=== PATIENT | male | born 1970 ===

== ENCOUNTER 2024-08-18 22:36 | Emergency (ER) | payer SELFPAY ==
[2024-08-18] MEDS: Prochlorperazine 10 MG/2 ML SDV IM ONE (22:50)
[2024-08-18 23:02] LABS: BASOPHILS ABSOLUTE AUTO 0.02 K/uL (0.00-0.20); BASOPHILS PERCENT AUTO 0.1 % (0.0-2.0); EOSINOPHILS ABSOLUTE AUTO 0.02 K/uL (0.00-0.50); EOSINOPHILS PERCENT AUTO 0.1 % (0.0-5.0); HEMATOCRIT 48.3 % (39.0-49.0); HEMOGLOBIN 16.4 g/dL (13.1-16.8); LYMPHOCYTES ABSOLUTE AUTO 1.01 K/uL (0.50-3.50); MEAN CORPUSCULAR HEMOGLOBIN 28.6 pg (28.2-33.3); MEAN CORPUSCULAR VOLUME 84.1 fL (84.0-98.0); MONOCYTES ABSOLUTE AUTO 0.87 K/uL (0.00-1.00); MONOCYTES PERCENT AUTO 4.3 % (2.0-14.0); NEUTROPHILS ABSOLUTE AUTO 18.32 K/uL (1.40-7.00); NEUTROPHILS PERCENT AUTO 90.5 % (45.0-80.0); PLATELET COUNT,PLT 226 K/uL (150-350); RED BLOOD CELL COUNT 5.74 M/uL (4.33-5.41); RED CELL DISTRIBUTION WIDTH 13.5 % (11.2-14.1); WHITE BLOOD CELL COUNT,WBC 20.2 K/uL (4.0-10.2)
[2024-08-18 23:11] LABS: INR 1.1
[2024-08-18 23:32] LABS: ALANINE AMINOTRANSFERASE,ALT 147 U/L (12-78); ALBUMIN 3.5 g/dL (3.4-5.0); ALKALINE PHOSPHATASE 220 IU/L (46-116); ANION GAP 13.1 meq/L (7-15); ASPARTATE AMNIOTRANSFERASE,AST 249 U/L (15-37); BILIRUBIN TOTAL 2.7 mg/dL (0.2-1.0); BLOOD UREA NITROGEN,BUN 15 mg/dL (7-18); CARBON DIOXIDE,CO2 28.7 mmol/L (21.0-32.0); CHLORIDE,CL 97 mmol/L (98-107); ESTIMATED GFR 61 mL/min (>=60); GLUCOSE RANDOM 122 mg/dL (70-99); POTASSIUM,K 3.8 mmol/L (3.5-5.1); PROTEIN TOTAL,TP 8.1 g/dL (6.4-8.2); SODIUM,NA 135 mmol/L (136-145)
[2024-08-18] MEDS: Ketorolac 30 MG/ML SDV IM ONE (23:57)
[2024-08-19 00:23] LABS: LIPASE 5989 U/L (16-77)
== END 2024-08-19 00:10 ==
LOC: LL.ED 22:36 → MERGE 22:36 → LL.ED 08-19 00:10
DX: K85.90 Acute pancreatitis without necrosis or infection, unspecified (principal); E80.7 Disorder of bilirubin metabolism, unspecified; R74.01 Elevation of levels of liver transaminase levels; I50.9 Heart failure, unspecified
CPT/HCPCS: 36415; 74176; 80053; 83690; 83880; 85025; 85610; 96372; 99284; 99285; J0780; J1885

== ENCOUNTER 2024-09-19 15:05 | Observation (INO) | payer BC ==
[2024-09-19 15:27] LABS: BASOPHILS ABSOLUTE AUTO 0.03 K/uL (0.00-0.20); BASOPHILS PERCENT AUTO 0.3 % (0.0-2.0); EOSINOPHILS ABSOLUTE AUTO 0.34 K/uL (0.00-0.50); EOSINOPHILS PERCENT AUTO 3.7 % (0.0-5.0); HEMATOCRIT 43.6 % (39.0-49.0); HEMOGLOBIN 14.4 g/dL (13.1-16.8); LYMPHOCYTES ABSOLUTE AUTO 1.97 K/uL (0.50-3.50); LYMPHOCYTES PERCENT AUTO 21.3 % (10.0-50.0); MEAN CORPUSCULAR HEMOGLOBIN 28.5 pg (28.2-33.3); MEAN CORPUSCULAR VOLUME 86.3 fL (84.0-98.0); MONOCYTES PERCENT AUTO 5.4 % (2.0-14.0); NEUTROPHILS PERCENT AUTO 69.3 % (45.0-80.0); PLATELET COUNT,PLT 227 K/uL (150-350); RED BLOOD CELL COUNT 5.05 M/uL (4.33-5.41); RED CELL DISTRIBUTION WIDTH 13.7 % (11.2-14.1); WHITE BLOOD CELL COUNT,WBC 9.2 K/uL (4.0-10.2)
[2024-09-19] MEDS: Diltiazem 25 MG/5 ML SDV IVPUSH ONE (15:31)
[2024-09-19 15:54] LABS: ALANINE AMINOTRANSFERASE,ALT 38 U/L (12-78); ALBUMIN 3.2 g/dL (3.4-5.0); ALKALINE PHOSPHATASE 137 IU/L (46-116); ANION GAP 11.6 meq/L (7-15); ASPARTATE AMNIOTRANSFERASE,AST 22 U/L (15-37); BILIRUBIN TOTAL 0.5 mg/dL (0.2-1.0); BLOOD UREA NITROGEN,BUN 22 mg/dL (7-18); CALCIUM 8.8 mg/dL (8.5-10.1); CARBON DIOXIDE,CO2 26.4 mmol/L (21.0-32.0); CHLORIDE,CL 101 mmol/L (98-107); CREATININE 2.12 mg/dL (0.51-1.17); ESTIMATED GFR 37 mL/min (>=60); GLUCOSE RANDOM 153 mg/dL (70-99); POTASSIUM,K 3.7 mmol/L (3.5-5.1); PRO B-TYPE NATRIUR PEPT,BNPPRO 2362 pg/mL (0-125); PROTEIN TOTAL,TP 7.9 g/dL (6.4-8.2); SODIUM,NA 139 mmol/L (136-145)
[2024-09-19] MEDS: Bumetanide 2.5 MG/10 ML MDV IVPUSH ONE (16:26)
[2024-09-19] MEDS ORDERED: Magnesium Hydroxide 400 MG/5 ML Susp 30 ML Cup PO PRN (16:51)
[2024-09-19] MEDS ORDERED: Acetaminophen 325 MG Tab PO PRN (16:51)
[2024-09-19] MEDS ORDERED: Albuterol 6.7 GM Inhaler INH PRN (16:52)
[2024-09-19] MEDS: Diltiazem 120 MG Cap.CD PO ONE (17:30)
[2024-09-19] MEDS: Apixaban 5 MG Tab PO SCH (17:42)
[2024-09-19] MEDS: Diltiazem 25 MG/5 ML SDV IVPUSH PRN (18:34)
[2024-09-19] MEDS: LORazepam 0.5 MG Tab PO PRN (20:04)
[2024-09-19] MEDS: diphenhydrAMINE 25 MG Cap PO PRN (21:05)
[2024-09-19] MEDS: LORazepam 0.5 MG Tab PO ONE (21:12)
[2024-09-19] MEDS: LORazepam 0.5 MG Tab ONE (21:19)
[2024-09-19] MEDS: LORazepam 1 MG Tab PO PRN (23:01)
[2024-09-20] MEDS: Spironolactone 25 MG Tab PO SCH (07:16)
[2024-09-20] MEDS: Diltiazem 120 MG Cap.CD PO SCH (07:17)
[2024-09-20] MEDS: Pantoprazole 40 MG Tab.CR PO SCH (07:18)
[2024-09-20] MEDS: Cetirizine 10 MG Tab PO SCH (07:18)
[2024-09-20] MEDS: Lisinopril 5 MG Tab PO SCH (07:18)
[2024-09-20] MEDS: Metoprolol Succinate 50 MG Tab.ER PO SCH (07:19)
[2024-09-20] MEDS: Fluticasone NASAL Spray 16 GM Bottle NASBOTH SCH (07:22)
[2024-09-20] MEDS: Diltiazem 120 MG Cap.CD PO ONE (08:20)
[2024-09-20 10:10] LABS: ANION GAP 8.1 meq/L (7-15); CALCIUM 9.1 mg/dL (8.5-10.1); CARBON DIOXIDE,CO2 29.9 mmol/L (21.0-32.0); CREATININE 1.42 mg/dL (0.51-1.17); EST CRCL DRUG DOSING (CG) 53.92 mL/min; POTASSIUM,K 3.7 mmol/L (3.5-5.1)
[2024-09-21] MEDS ORDERED: Diltiazem 120 MG Cap.CD PO SCH (08:00)
== END 2024-09-20 17:16 ==
LOC: LL.ED 15:05 → SUPCPDRO 15:05 → UNDOADMOB 16:41 → LL.MS 16:41
PROVIDERS: ADMIT Nurse Practitioner Family; ATTEND Nurse Practitioner Family
DX: I48.91 Unspecified atrial fibrillation (principal); I13.0 Hypertensive heart and chronic kidney disease with heart failure and stage 1 through stage 4 chronic kidney disease, or unspecified chronic kidney disease; I50.9 Heart failure, unspecified; N18.32 Chronic kidney disease, stage 3b; I95.9 Hypotension, unspecified; F41.9 Anxiety disorder, unspecified; Z79.01 Long term (current) use of anticoagulants; Z79.899 Other long term (current) drug therapy; Z91.030 Bee allergy status; Z88.8 Allergy status to other drugs, medicaments and biological substances
CPT/HCPCS: 36415; 71045; 80048; 80053; 83735; 83880; 85025; 93005; 96374; 96375; 96376; 99223; 99239; 99285-25; A9270-GY; G0378; J3490